=== PATIENT | male | born 1960 | race Caucasian/White ===

== ENCOUNTER 2017-03-12 19:53 | Emergency (ER) | payer OTHER ==
[~2017-03-12] VITALS: Ht 170.2 cm; Wt 57.2 kg
--- NOTE | 2017-03-12 21:12 | NUR ---
[facility]. PT STATES "LT LEG PAIN X3 HOURS"; DENIES TRAUMA PT AOX4 RR EVEN AND UNLABORED. NO SOB NOTED. NAD NOTED. NO NVD AT THIS TIME. PT GOWNED AND PLACED ON MONITOR WAITIING FOR MD SAGE.
[2017-03-12] MEDS ORDERED: TRAMADOL HCL 50 MG TABLET ONE (21:17)
[2017-03-12] MEDS ORDERED: TRAMADOL HCL 50 MG TABLET PO ONE (21:30)
--- NOTE | 2017-03-12 22:22 | NUR ---
SIMON AT BEDSIDE FOR US DVT
--- NOTE | 2017-03-12 22:40 | NUR ---
CALLED [facility] FOR TRANSPORTATION GOING BACK TO [facility] ETA 1 HOUR AND 15 MIN.
--- NOTE | 2017-03-12 23:39 | NUR ---
CALLED [facility], CEE [facility] AWARE PT TO BE TRANSPORTED BACK
--- NOTE | 2017-03-12 23:42 | NUR ---
REPORT GIVEN TO MED RESPONSE EMT, D/C PAPERS PROVIDED. PT AWARE OF TRANSFER. AOX4. VSS. MED RESPONSE TOOK OVER CARE.
--- NOTE | 2017-03-12 23:51 | NUR ---
PT TRANSFERED OUT VIA [facility]
[2017-03-12 23:52] VITALS: BP 123/81
== END 2017-03-12 23:53 | disposition home or self-care (01) ==
LOC: ER 19:56
DX: M79.605 Pain in left leg (principal); I10 Essential (primary) hypertension; F31.9 Bipolar disorder, unspecified; K21.9 Gastro-esophageal reflux disease without esophagitis; G89.29 Other chronic pain
CPT/HCPCS: 93971-TC; A4606; Z7610